=== PATIENT | male | born 1960 | race African-American/Black ===

== ENCOUNTER 2018-05-07 16:49 | Inpatient (IN) | payer OTHER ==
[2018-05-07 17:26] VITALS: BMI 27.3
--- NOTE | 2018-05-07 17:37 | HP ---
CIWA Score - Admission Criteria [facility]ASAS Guidelines: Admission for Medically Managed Detox: Requires at least one of the followin. CIWA greater than 12 2. Seizures within the past 24 hours 3. Delirium tremens within the past 24 hours 4. Hallucinations within the past 24 hours 5. Acute intervention needed for co occurring medical disorder 6. Acute intervention needed for co occurring psychiatric disorder 7. Severe withdrawal that cannot be handled at a lower level of care (continued vomiting, continued diarrhea, abnormal vital signs) requiring intravenous medication and/or fluids 8. Admission ROS S - HPI Allergies/Adverse Reactions: Allergies Allergy/AdvReac Type Severity Reaction Status Date / Time Fish Containing Products Allergy Verified 05/07/18 17:35 History of Present Illness: patient here requesting rehab from etoh and cocaine use , cocaine use reports " not a lot " x 20 years , referred by the [facility] [facility] mission . etoh : latest use 2 days ago , 6-7 beers , reports " I don't feel right " if not drinking , denies seizures, blackouts, tremors . Reports recent relapse 2 d ago on Saturday . Has been to [facility] [facility] almost 1 year ago . tobacco : occasional . PMHX : denies PShx : denies PSych : denies Exam Limitations: No Limitations - Ebola screening Have you been sick,other than usual withdrawal symptoms: No - Review of Systems Constitutional: No Symptoms Reported EENT: reports: No Symptoms Reported, Other (glasses , denies dysphagia) Respiratory: reports: No Symptoms reported Cardiac: reports: No Symptoms Reported GI: reports: No Symptoms Reported : reports: No Symptoms Reported Musculoskeletal: reports: No Symptoms Reported Integumentary: reports: No Symptoms Reported Neuro: reports: No Symptoms reported Endocrine: reports: No Symptoms Reported Psychiatric: reports: Orientated x3 Patient History - Patient Medical History Hx Asthma: Yes (currently not on treatment) Hx Chronic Obstructive Pulmonary Disease (COPD): No Hx Cardiac Disorders: No Hx Hypertension: No Hx Seizures: No Hx Diabetes: No Hx Gastrointestinal Disorders: No Hx Genitourinary Disorders: No Hx Sexually Transmitted Disorders: Yes (syphilis) Hx Renal Disease (ESRD): No Hx Depression: No Hx Suicide Attempt: No Hx Schizophrenia: No - Patient Surgical History Past Surgical History: No Hx Neurologic Surgery: No Hx Cataract Extraction: No Hx Cardiac Surgery: No Hx Lung Surgery: No Hx Breast Surgery: No Hx Breast Biopsy: No Hx Abdominal Surgery: No Hx Appendectomy: No Hx Cholecystectomy: No Hx Genitourinary Surgery: No Hx Section: No Hx Orthopedic Surgery: No Anesthesia Reaction: No - Smoking Cessation Smoking history: Current every day smoker Have you smoked in the past 12 months: Yes Aproximately how many cigarettes per day: 7 Hx Chewing Tobacco Use: Yes Initiated information on smoking cessation: No Family Disease History - Family Disease History Family History: Denies Admission Physical Exam BHS - Vital Signs Vital Signs: Vital Signs - 24 hr 05/07/18 17:24 Temperature 98.7 F Pulse Rate 105 H Respiratory 18 Rate Blood Pressure 117/80 - Physical General Appearance: Yes: No Apparent Distress HEENTM: Yes: EOMI, Hearing grossly Normal, Normocephalic, Normal Voice Respiratory: Yes: Chest Non-Tender, Lungs Clear, Normal Breath Sounds Neck: Yes: No masses,lesions,Nodules, Trachea in good position Breast: Yes: Breast Exam Deferred Cardiology: Yes: Regular Rhythm, Regular Rate, S1, S2 Abdominal: Yes: Normal Bowel Sounds, Non Tender, Soft Genitourinary: Yes: Within Normal Limits Back: Yes: Normal Inspection Musculoskeletal: Yes: full range of Motion, Gait Steady Extremities: Yes: Normal Capillary Refill, Non-Tender Neurological: Yes: Motor Strength 5/5 Integumentary: Yes: Within Normal Limits, Normal Color - Diagnostic (1) Cocaine dependence Current Visit: Yes Status: Chronic Qualifiers: Substance use status: uncomplicated Qualified Code(s): F14.20 - Cocaine dependence, uncomplicated (2) Alcohol dependence Current Visit: Yes Status: Chronic Qualifiers: Substance use status: in remission Qualified Code(s): F10.21 - Alcohol dependence, in remission (3) Nicotine dependence Current Visit: Yes Status: Chronic Qualifiers: Nicotine product type: cigarettes BHS Breath Alcohol Content Breath Alcohol Content: 0 Urine Drug Screen - Results Drug Screen Negative: No Urine Drug Screen Results: BAR-Barbiturates Inpatient Rehab Admission - Initial Determination Are CD services needed?: Yes Free of communicable disease: Yes Not in need of hospitalization: Yes - Rehab Admission Criteria Previous failed treatment: Yes Poor recovery environment: No Comorbidities: No Lacks judgement: Yes Patient is meeting Inpatient Rehab admission criteria:: Yes
[2018-05-07] MEDS ORDERED: guaiFENesin/D-METHORPHAN HB 10 ML UNIT-DOSE CUPS PO PRN (17:39)
[2018-05-07] MEDS ORDERED: MAG HYDROX/AL HYDROX/SIMETH 30 ML UNIT-DOSE CUP PO PRN (17:39)
[2018-05-07] MEDS ORDERED: MAGNESIUM HYDROX 2400MG/30ML ORAL SUSPENSION 30 ML CUP PO PRN (17:39)
[2018-05-07] MEDS ORDERED: MAGNESIUM CITRATE 300 ML BOTTLE PO PRN (17:39)
[2018-05-07] MEDS ORDERED: ACETAMINOPHEN 325 MG TABLET (FP) PO PRN (17:39)
[2018-05-07] MEDS ORDERED: P-EPHED 60MG/TRIPROLIDI 2.5MG TABLET PO PRN (17:39)
[2018-05-07] MEDS ORDERED: MENTHOL/PHENOL 1 EACH UD MM PRN (17:39)
[2018-05-07] MEDS ORDERED: IBUPROFEN 400 MG TABLET (FP) PO PRN (17:39)
[2018-05-07] MEDS ORDERED: hydrOXYzine PAMOATE 25 MG CAPSULE (FP) PO PRN (17:39)
[2018-05-07] MEDS ORDERED: TUBERCULIN PPD 5 TU/0.1ML VIAL ID ONE (20:24)
[2018-05-07] MEDS: THIAMINE HCL 100 MG TABLET (FP) PO SCH (21:52)
[2018-05-08 04:37] LABS: URINE APPEARANCE CLEAR; URINE BILIRUBIN NEGATIVE (<2.0 mg/dL); URINE COLOR YELLOW; URINE GLUCOSE (UA) NEGATIVE (NEGATIVE); URINE KETONE NEGATIVE (NEGATIVE); URINE LEUK ESTERASE NEGATIVE (NEGATIVE); URINE NITRITE NEGATIVE (NEGATIVE); URINE PROTEIN 1+ (NEGATIVE); URINE UROBILINOGEN 4.0 E.U/dl mg/dL (0.2-1.0)
[2018-05-08 04:46] LABS: EPI CELLS RARE /HPF (FEW); URINE BACTERIA RARE /hpf (NONE SEEN); URINE HYALINE CAST 2 /lpf; URINE MUCUS MANY
[2018-05-08] MEDS: PRENATAL VITAMINS W/ FOLIC ACID TABLET (FP) PO SCH (10:19)
[2018-05-08 10:29] LABS: HEMATOCRIT 39.5 % (35.4-49); HEMOGLOBIN 13.6 GM/dL (11.7-16.9); MCH 31.5 pg (25.7-33.7); MCHC 34.4 g/dl (32.0-35.9); MEAN CELL VOLUME 91.5 fl (80-96); MEAN PLT VOLUME 8.2 fl (7.5-11.1); PLATELET COUNT 243 K/MM3 (134-434); RBC 4.32 M/mm3 (4.00-5.60); RDW 12.7 % (11.9-15.9); WHITE BLOOD COUNT 3.7 K/mm3 (4.0-10.0)
[2018-05-08 10:55] LABS: ALBUMIN 3.7 g/dl (3.4-5.0); ALK PHOS 91 U/L (45-117); ANION GAP 7 MMOL/L (8-16); BILIRUBIN,TOTAL 0.8 mg/dL (0.2-1); BLOOD UREA NITROGEN 13 mg/dL (7-18); CHLORIDE 107 mmol/L (98-107); CO2 28 mmol/L (21-32); GLUCOSE,RANDOM 103 mg/dL (74-106); POTASSIUM 4.6 mmol/L (3.5-5.1); SGOT/AST 28 U/L (15-37); SGPT/ALT 38 U/L (13-61); SODIUM 142 mmol/L (136-145); TOT PROT 6.9 g/dl (6.4-8.2)
[2018-05-08] MEDS: THIAMINE HCL 100 MG TABLET (FP) PO SCH (22:11)
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
[2018-05-09] MEDS: PRENATAL VITAMINS W/ FOLIC ACID TABLET (FP) PO SCH (10:31)
[2018-05-09] MEDS: BACITRACIN 0.9 GM PACKET TP SCH ×2 (10:32→22:12)
[2018-05-09] MEDS: THIAMINE HCL 100 MG TABLET (FP) PO SCH (22:12)
[2018-05-10] MEDS: BACITRACIN 0.9 GM PACKET TP SCH ×2 (11:36→21:51)
[2018-05-10] MEDS: PRENATAL VITAMINS W/ FOLIC ACID TABLET (FP) PO SCH (11:37)
[2018-05-10] MEDS: THIAMINE HCL 100 MG TABLET (FP) PO SCH (21:51)
[2018-05-11] MEDS: BACITRACIN 0.9 GM PACKET TP SCH ×2 (10:03→21:46)
[2018-05-11] MEDS: PRENATAL VITAMINS W/ FOLIC ACID TABLET (FP) PO SCH (10:03)
[2018-05-11] MEDS: THIAMINE HCL 100 MG TABLET (FP) PO SCH (21:47)
[2018-05-12] MEDS: PRENATAL VITAMINS W/ FOLIC ACID TABLET (FP) PO SCH (10:19)
[2018-05-12] MEDS: BACITRACIN 0.9 GM PACKET TP SCH ×2 (10:19→22:05)
[2018-05-12] MEDS: THIAMINE HCL 100 MG TABLET (FP) PO SCH (22:05)
[2018-05-13] MEDS: BACITRACIN 0.9 GM PACKET TP SCH ×2 (10:29→22:07)
[2018-05-13] MEDS: PRENATAL VITAMINS W/ FOLIC ACID TABLET (FP) PO SCH (10:29)
[2018-05-13] MEDS: THIAMINE HCL 100 MG TABLET (FP) PO SCH (22:07)
[2018-05-14] MEDS: PRENATAL VITAMINS W/ FOLIC ACID TABLET (FP) PO SCH (10:20)
[2018-05-14] MEDS: THIAMINE HCL 100 MG TABLET (FP) PO SCH (21:53)
[2018-05-15] MEDS: PRENATAL VITAMINS W/ FOLIC ACID TABLET (FP) PO SCH (09:56)
[2018-05-15] MEDS: THIAMINE HCL 100 MG TABLET (FP) PO SCH (21:55)
[2018-05-16] MEDS: PRENATAL VITAMINS W/ FOLIC ACID TABLET (FP) PO SCH (10:12)
[2018-05-16] MEDS: THIAMINE HCL 100 MG TABLET (FP) PO SCH (21:54)
[2018-05-17] MEDS: PRENATAL VITAMINS W/ FOLIC ACID TABLET (FP) PO SCH (10:16)
[2018-05-17] MEDS: THIAMINE HCL 100 MG TABLET (FP) PO SCH (22:26)
[2018-05-18] MEDS: PRENATAL VITAMINS W/ FOLIC ACID TABLET (FP) PO SCH (09:41)
[2018-05-18] MEDS: THIAMINE HCL 100 MG TABLET (FP) PO SCH (22:13)
[2018-05-18] MEDS: MELATONIN 5 MG TABLETS PO PRN (22:13)
[2018-05-19] MEDS: PRENATAL VITAMINS W/ FOLIC ACID TABLET (FP) PO SCH (10:06)
[2018-05-19] MEDS: THIAMINE HCL 100 MG TABLET (FP) PO SCH (21:42)
[2018-05-20 06:58] VITALS: PULSE 73
[2018-05-20] MEDS: PRENATAL VITAMINS W/ FOLIC ACID TABLET (FP) PO SCH (10:24)
[2018-05-20] MEDS: THIAMINE HCL 100 MG TABLET (FP) PO SCH (21:56)
[2018-05-20] MEDS: MELATONIN 5 MG TABLETS PO PRN (21:56)
[2018-05-21 07:00] VITALS: TEMP 97.4
[2018-05-21] MEDS: PRENATAL VITAMINS W/ FOLIC ACID TABLET (FP) PO SCH (10:18)
--- NOTE | 2018-05-21 12:46 | PN ---
[facility] Progress Note Note: PATIENT SCHEDULED FOR DISCHARGE TOMORROW MORNING. AFTERCARE ARRANGED FOR [place] AND PATIENT TO FOLLOW UP WITH FACILITY UPON DISCHARGE. PATIENT REPORTS MEETING ALL REHAB GOALS AND DENIES SI/HI. PATIENT IS CLINICALLY STABLE FOR DISCHARGE AT THIS TIME. PATIENT ENCOURAGED TO CONTINUE WITH AFTERCARE TO PREVENT RELAPSE AND TO FOLLOW UP WITH PCP WITHIN ONE WEEK OF DISCHARGE. Vital Signs Temperature 97.4 F L 05/21/18 07:00 Pulse Rate 73 05/21/18 07:00 Respiratory Rate 18 05/21/18 07:00 Blood Pressure 122/83 05/21/18 07:00 O2 Sat by Pulse Oximetry (%)
[2018-05-21] MEDS: THIAMINE HCL 100 MG TABLET (FP) PO SCH (21:42)
[2018-05-21] MEDS: MELATONIN 5 MG TABLETS PO PRN (21:43)
[2018-05-22 07:05] VITALS: BP 137/81
[2018-05-22] MEDS: PRENATAL VITAMINS W/ FOLIC ACID TABLET (FP) PO SCH (09:03)
== END 2018-05-22 09:45 | disposition home or self-care (01) | DRG 772 ==
LOC: YASAS 16:49 → Y3W 19:06
PROVIDERS: ADMIT Psychiatry & Neurology Psychiatry; ATTEND Psychiatry & Neurology Psychiatry
PROC: HZ42ZZZ Group Counseling for Substance Abuse Treatment, Cognitive-Behavioral (ICD-10-PCS; principal; 2018-05-07)
DX: F10.20 Alcohol dependence, uncomplicated (principal); F14.20 Cocaine dependence, uncomplicated; F17.210 Nicotine dependence, cigarettes, uncomplicated; Z87.438 Personal history of other diseases of male genital organs; Z91.013 Allergy to seafood; Z59.0 Homelessness
CPT/HCPCS: 36415; 71046-TC-FY; 80053; 81003; 81015; 85027; 86593

== ENCOUNTER 2020-07-19 18:07 | Inpatient (IN) | payer OTHER ==
[2020-07-20] VITALS: BMI 27.0
[2020-07-20] MEDS ORDERED: LOPERAMIDE HCL 2 MG CAPSULE PO PRN (01:35)
[2020-07-20] MEDS ORDERED: NICOTINE POLACRILEX 2 MG GUM BC PRN (01:35)
[2020-07-20] MEDS ORDERED: IBUPROFEN 400 MG TABLET (FP) PO PRN (01:35)
[2020-07-20] MEDS ORDERED: guaiFENesin 200 MG/10 ML 10 ML UNIT-DOSE CUPS PO PRN (01:35)
[2020-07-20] MEDS ORDERED: MAGNESIUM CITRATE 300 ML BOTTLE PO PRN (01:35)
[2020-07-20] MEDS ORDERED: MAGNESIUM HYDROX 2400MG/30ML ORAL SUSPENSION 30 ML CUP PO PRN (01:35)
[2020-07-20] MEDS ORDERED: P-EPHED 60MG/TRIPROLIDI 2.5MG TABLET PO PRN (01:35)
[2020-07-20] MEDS ORDERED: ACETAMINOPHEN 325 MG TABLET (FP) PO PRN (01:35)
[2020-07-20] MEDS: NICOTINE 14 MG/24 HOURS TOPICAL PATCH TD SCH (09:41)
[2020-07-20] MEDS: PRENATAL VITAMINS W/ FOLIC ACID TABLET (FP) PO SCH (09:41)
[2020-07-20 11:04] LABS: HEMATOCRIT 42.2 % (35.4-49); HEMOGLOBIN 14.4 GM/dL (11.7-16.9); MCH 32.1 pg (25.7-33.7); MCHC 34.2 g/dl (32.0-35.9); MEAN CELL VOLUME 93.9 fl (80-96); PLATELET COUNT 258 K/MM3 (134-434); RBC 4.49 M/mm3 (4.00-5.60); RDW 14.3 % (11.9-15.9); WHITE BLOOD COUNT 4.5 K/mm3 (4.0-10.0)
[2020-07-20 11:06] LABS: BLOOD UREA NITROGEN 15.7 mg/dL (7-18)
[2020-07-20 11:07] LABS: ALBUMIN 3.8 g/dl (3.4-5.0); CALCIUM 8.9 mg/dL (8.5-10.1)
[2020-07-20 11:10] LABS: CREATININE 1.1 mg/dL (0.55-1.3)
[2020-07-20 11:11] LABS: TOT PROT 7.2 g/dl (6.4-8.2)
[2020-07-20 14:42] LABS: PH,URINE 5.5 (5.0-8.0); URINE APPEARANCE CLEAR; URINE BILIRUBIN NEGATIVE (NEGATIVE); URINE COLOR YELLOW; URINE GLUCOSE (UA) NEGATIVE (NEGATIVE); URINE KETONE NEGATIVE (NEGATIVE); URINE LEUK ESTERASE NEGATIVE (NEGATIVE); URINE NITRITE NEGATIVE (NEGATIVE); URINE PROTEIN NEGATIVE (NEGATIVE); URINE UROBILINOGEN 0.2 mg/dL (0.2-1.0)
[2020-07-20] MEDS: MELATONIN 5 MG TABLETS PO SCH (22:29)
[2020-07-20] MEDS: THIAMINE HCL 100 MG TABLET (FP) PO SCH (22:29)
[2020-07-21] MEDS: NICOTINE 14 MG/24 HOURS TOPICAL PATCH TD SCH (09:45)
[2020-07-21] MEDS: PRENATAL VITAMINS W/ FOLIC ACID TABLET (FP) PO SCH (09:45)
[2020-07-21] MEDS: MELATONIN 5 MG TABLETS PO SCH (21:38)
[2020-07-21] MEDS: THIAMINE HCL 100 MG TABLET (FP) PO SCH (21:38)
[2020-07-22] MEDS: NICOTINE 14 MG/24 HOURS TOPICAL PATCH TD SCH (09:40)
[2020-07-22] MEDS: PRENATAL VITAMINS W/ FOLIC ACID TABLET (FP) PO SCH (09:40)
[2020-07-22] MEDS ORDERED: MASKS NR ONE (14:06)
[2020-07-22] MEDS: MELATONIN 5 MG TABLETS PO SCH (22:50)
[2020-07-22] MEDS: THIAMINE HCL 100 MG TABLET (FP) PO SCH (22:50)
[2020-07-23] MEDS: NICOTINE 14 MG/24 HOURS TOPICAL PATCH TD SCH (09:31)
[2020-07-23] MEDS: PRENATAL VITAMINS W/ FOLIC ACID TABLET (FP) PO SCH (09:31)
[2020-07-23] MEDS ORDERED: PT OWN MED DRAWER 7, Y5N ONE (20:10)
[2020-07-23] MEDS: THIAMINE HCL 100 MG TABLET (FP) PO SCH (21:39)
[2020-07-23] MEDS: MELATONIN 5 MG TABLETS PO SCH (21:39)
[2020-07-24 07:06] LABS: SARS-CoV-2 NAA Not Detected (Not Detected)
[2020-07-24] MEDS: NICOTINE 14 MG/24 HOURS TOPICAL PATCH TD SCH (09:08)
[2020-07-24] MEDS: PRENATAL VITAMINS W/ FOLIC ACID TABLET (FP) PO SCH (09:09)
[2020-07-24] MEDS: THIAMINE HCL 100 MG TABLET (FP) PO SCH (21:18)
[2020-07-24] MEDS: MELATONIN 5 MG TABLETS PO SCH (21:18)
[2020-07-25] MEDS: PRENATAL VITAMINS W/ FOLIC ACID TABLET (FP) PO SCH (10:20)
[2020-07-25] MEDS: NICOTINE 14 MG/24 HOURS TOPICAL PATCH TD SCH (10:20)
[2020-07-25] MEDS: THIAMINE HCL 100 MG TABLET (FP) PO SCH (21:44)
[2020-07-25] MEDS: MELATONIN 5 MG TABLETS PO SCH (21:44)
[2020-07-26] MEDS: NICOTINE 14 MG/24 HOURS TOPICAL PATCH TD SCH (10:21)
[2020-07-26] MEDS: PRENATAL VITAMINS W/ FOLIC ACID TABLET (FP) PO SCH (10:21)
[2020-07-26] MEDS: MELATONIN 5 MG TABLETS PO SCH (21:26)
[2020-07-26] MEDS: THIAMINE HCL 100 MG TABLET (FP) PO SCH (21:26)
[2020-07-27] MEDS: NICOTINE 14 MG/24 HOURS TOPICAL PATCH TD SCH (10:30)
[2020-07-27] MEDS: PRENATAL VITAMINS W/ FOLIC ACID TABLET (FP) PO SCH (10:30)
[2020-07-27] MEDS: MELATONIN 5 MG TABLETS PO SCH (21:30)
[2020-07-27] MEDS: THIAMINE HCL 100 MG TABLET (FP) PO SCH (21:30)
[2020-07-28] MEDS: PRENATAL VITAMINS W/ FOLIC ACID TABLET (FP) PO SCH (10:14)
[2020-07-28] MEDS: NICOTINE 14 MG/24 HOURS TOPICAL PATCH TD SCH (10:14)
[2020-07-28] MEDS: THIAMINE HCL 100 MG TABLET (FP) PO SCH (21:44)
[2020-07-28] MEDS: MELATONIN 5 MG TABLETS PO SCH (21:44)
[2020-07-29] MEDS: NICOTINE 14 MG/24 HOURS TOPICAL PATCH TD SCH (10:03)
[2020-07-29] MEDS: PRENATAL VITAMINS W/ FOLIC ACID TABLET (FP) PO SCH (10:03)
[2020-07-29] MEDS: MELATONIN 5 MG TABLETS PO SCH (21:23)
[2020-07-29] MEDS: THIAMINE HCL 100 MG TABLET (FP) PO SCH (21:23)
[2020-07-30] MEDS: PRENATAL VITAMINS W/ FOLIC ACID TABLET (FP) PO SCH (09:45)
[2020-07-30] MEDS: NICOTINE 14 MG/24 HOURS TOPICAL PATCH TD SCH (09:45)
[2020-07-30] MEDS: THIAMINE HCL 100 MG TABLET (FP) PO SCH (21:15)
[2020-07-30] MEDS: MELATONIN 5 MG TABLETS PO SCH (21:15)
[2020-07-31] MEDS: PRENATAL VITAMINS W/ FOLIC ACID TABLET (FP) PO SCH (09:53)
[2020-07-31] MEDS: NICOTINE 14 MG/24 HOURS TOPICAL PATCH TD SCH (09:53)
[2020-07-31] MEDS: MAG HYDROX/AL HYDROX/SIMETH 30 ML UNIT-DOSE CUP PO PRN (17:42)
[2020-07-31] MEDS: MELATONIN 5 MG TABLETS PO SCH (21:31)
[2020-07-31] MEDS: THIAMINE HCL 100 MG TABLET (FP) PO SCH (21:31)
[2020-08-01] MEDS: MAG HYDROX/AL HYDROX/SIMETH 30 ML UNIT-DOSE CUP PO PRN (09:48)
[2020-08-01] MEDS: PRENATAL VITAMINS W/ FOLIC ACID TABLET (FP) PO SCH (10:43)
[2020-08-01] MEDS: NICOTINE 14 MG/24 HOURS TOPICAL PATCH TD SCH (10:43)
[2020-08-01] MEDS: MELATONIN 5 MG TABLETS PO SCH (21:51)
[2020-08-01] MEDS: THIAMINE HCL 100 MG TABLET (FP) PO SCH (21:51)
[2020-08-02] MEDS: NICOTINE 14 MG/24 HOURS TOPICAL PATCH TD SCH (10:07)
[2020-08-02] MEDS: PRENATAL VITAMINS W/ FOLIC ACID TABLET (FP) PO SCH (10:07)
[2020-08-02] MEDS: MELATONIN 5 MG TABLETS PO SCH (21:37)
[2020-08-02] MEDS: THIAMINE HCL 100 MG TABLET (FP) PO SCH (21:37)
[2020-08-03 06:51] VITALS: BP 135/85; PULSE 69; TEMP 97.3
[2020-08-03] MEDS: PRENATAL VITAMINS W/ FOLIC ACID TABLET (FP) PO SCH (09:42)
[2020-08-03] MEDS: NICOTINE 14 MG/24 HOURS TOPICAL PATCH TD SCH (09:42)
== END 2020-08-03 09:38 | disposition home or self-care (01) | DRG 772 ==
LOC: YASAS 18:07 → Y3E 07-20 01:02
PROVIDERS: ADMIT Allergy & Immunology; ATTEND Allergy & Immunology
PROC: HZ42ZZZ Group Counseling for Substance Abuse Treatment, Cognitive-Behavioral (ICD-10-PCS; principal; 2020-07-20)
DX: F10.20 Alcohol dependence, uncomplicated (principal); F14.20 Cocaine dependence, uncomplicated; F12.20 Cannabis dependence, uncomplicated; F17.210 Nicotine dependence, cigarettes, uncomplicated; F19.280 Other psychoactive substance dependence with psychoactive substance-induced anxiety disorder; F19.24 Other psychoactive substance dependence with psychoactive substance-induced mood disorder; J45.909 Unspecified asthma, uncomplicated; R76.11 Nonspecific reaction to tuberculin skin test without active tuberculosis; Z62.810 Personal history of physical and sexual abuse in childhood; Z98.890 Other specified postprocedural states; Z59.0 Homelessness
CPT/HCPCS: 36415; 71046-TC-FY; 80053; 81003; 85027; 86593; 86780; 93005; 93010; C9803; U0003; U0005